=== PATIENT | male | born 1970 | race Caucasian/White ===

== ENCOUNTER 2024-08-09 14:16 | Emergency (ER) | payer SELFPAY ==
[~2024-08-09] VITALS: Ht 182.8 cm; Wt 86.2 kg
[~2024-08-09 14:16] MED LIST: FLEXERIL5 MG PO; VICODIN 5/500 505 MG PO; VOLTAREN75 MG PO
[2024-08-09] MEDS ORDERED: Acetaminophen/Hydrocodone 5 MG/325 MG TABLET PO ONE (16:40)
[2024-08-09] MEDS ORDERED: HYDROCODONE-AC1 EAC1 PO (18:23)
== END 2024-08-09 18:46 | disposition home or self-care (01) ==
LOC: ED 14:16
DX: S82.61XA Displaced fracture of lateral malleolus of right fibula, initial encounter for closed fracture (principal); S82.51XA Displaced fracture of medial malleolus of right tibia, initial encounter for closed fracture; F17.200 Nicotine dependence, unspecified, uncomplicated; W01.0XXA Fall on same level from slipping, tripping and stumbling without subsequent striking against object, initial encounter; Y93.89 Activity, other specified; Y92.89 Other specified places as the place of occurrence of the external cause; Y99.8 Other external cause status

== ENCOUNTER 2025-03-23 20:12 | Emergency (ER) | payer OTHER ==
[~2025-03-23] VITALS: Ht 182.8 cm; Wt 84.5 kg
[~2025-03-23 20:12] MED LIST changes: +AMOX-CLAV 875-1 EACH PO; +HYDROCODONE-AC1 EAC1 PO
[2025-03-23 21:12] LABS: BASO # 0.1 10*3/uL (0.0-0.1); BASO % 1.0 % (0.0-1.0); EOS # 0.1 10*3/uL (0.0-0.4); EOS % 1.6 % (1.0-4.0); MEAN CELL VOLUME 87.8 fl (80.0-94.0); MEAN CORPUSCULAR HGB 29.4 pg (27.0-31.0); MEAN PLATELET VOLUME 11.0 fl (9.6-12.3); MONO # 0.7 10*3/uL (0.1-1.0); MONO % 8.0 % (3.0-9.0); NEUT # 6.3 10*3/uL (2.3-7.9); NEUT % 69.6 % (47.0-73.0); NUCLEATED RED BLOOD CELL 0.0 % (0.0-0.0); NUCLEATED RED BLOOD CELL 0.0 10*3/uL (0.0-0.0); PLATELET COUNT AUTOMATED 205 10*3/uL (130-400); RED CELL DISTRI WIDTH 13.2 % (0-14.5)
[2025-03-23 22:36] LABS: BUN 13 mg/dl (9-23); SGPT/ALT 15 U/L (5-49)
== END 2025-03-23 23:07 | disposition left against medical advice (07) ==
LOC: ED 20:12
PROVIDERS: Emergency Medicine
DX: R07.2 Precordial pain (principal); J45.909 Unspecified asthma, uncomplicated; Z79.899 Other long term (current) drug therapy